=== PATIENT | male | born 1945 | race Caucasian/White ===

== ENCOUNTER 2018-01-07 21:09 | Inpatient (IN) | payer OTHER ==
[~2018-01-07] VITALS: Ht 162.6 cm; Wt 69.9 kg
[~2018-01-07 21:09] MED LIST: ASPIRIN325 PO; AVODART0.5 MG PO; CARISOPRODOL; COUMADIN 5 MG TA5 M1 PO; ENOXAPARIN80 MG/0.8 SQ; LEVAQUIN PO; LISINOPRIL20 MG PO; LOPRESSOR50 PO; PERCOCET 10-321 EACH PO; PERCOCET 5-3251 EACH PO; PROTONIX40 M2 PO; SIMVASTATIN40 MG PO; SOMA PO
[2018-01-07 21:16] VITALS: BP 114/82
[2018-01-07] MEDS ORDERED: MONOPRIL20 MG PO (21:29)
[2018-01-07] MEDS ORDERED: DICLOFENAC SODI75 MG PO (21:30)
[2018-01-07] MEDS ORDERED: FLOMAX0.4 MG PO (21:30)
[2018-01-07 21:37] LABS: ABSOLUTE BASOPHILS 0.1 thou/uL (0.0-0.2); ABSOLUTE EOSINOPHILS 0.1 thou/uL (0.0-0.7); ABSOLUTE LYMPHOCYTES 3.1 thou/uL (0.8-5.3); ABSOLUTE MONOCYTES 0.6 thou/uL (0.0-1.2); ABSOLUTE NEUTROPHILS 6.7 thou/uL (1.6-8.1); BASOPHILS 0.7 %; EOSINOPHILS 1.2 %; HEMATOCRIT 46.8 % (42.0-52.0); HEMOGLOBIN 15.8 gm/dL (14.0-18.0); LYMPHOCYTES 29.2 %; MCH 32.1 pg (26.0-34.0); MCHC 33.8 g/dL (28.0-37.0); MONOCYTES 5.7 %; MPV 7.5 fl. (7.2-11.1); NUCLEATED RBCS 0 /100WBC; PLATELET COUNT* 179 thou/uL (150-400); POLYS 63.2 %; RBC 4.93 mil/uL (4.50-6.00); RDW-CV 13.8 % (10.5-14.5); WBC 10.6 thou/uL (4.0-11.0)
[2018-01-07 21:42] LABS: ANION GAP 6 mmol/L (7-16); BUN 21 mg/dL (7-18); CALCIUM 8.7 mg/dL (8.5-10.1); CHLORIDE 104 mmol/L (98-107); CO2 29 mmol/L (21-32); GLUCOSE 147 mg/dL (70-99); POTASSIUM 3.5 mmol/L (3.5-5.1); SODIUM 139 mmol/L (136-145)
[2018-01-07 21:43] LABS: APTT 24.3 Seconds (25.0-31.3); PROTIME 10.6 Seconds (9.20-11.50)
--- NOTE | 2018-01-07 21:45 | NUR ---
CT HEAD C SPINE COMPLEATED PATEINT RETURNED TO ED
[2018-01-07 21:48] LABS: ALBUMIN 3.7 g/dL (3.4-5.0); ALKALINE PHOSPHATASE 68 U/L (46-116); LIPASE 151 U/L (73-393); SGOT 18 U/L (15-37); SGPT 31 U/L (30-65); TOTAL BILIRUBIN 0.7 mg/dL (<0.1-1.0)
[2018-01-07 22:03] LABS: TROPONIN-I LEVEL <0.06 ng/mL (<0.06)
[2018-01-07 23:00] VITALS: BP 125/64
[2018-01-07 23:30] VITALS: BP 137/68
[2018-01-08 04:00] VITALS: BP 139/79
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
[2018-01-08 08:00] VITALS: BP 116/95
--- NOTE | 2018-01-08 08:00 | NUR ---
AM ASSESSMENT COMPLETE, DEFER TO COMPUTER CHARTING. LEVELER HELPER TRACKING SR. DENIES DIZZINESS, TINGLING OR WEAKNESS AT THIS TIME. PATIENT REPORTING HAVING BACK PAIN - WHICH HE STATES IS CHRONIC, REFUSING PAIN MEDICATION WHEN OFFERED. DRESSING CDI TO LEFT ELBOW. CALL LIGHT WTIHIN REACH. WILL MONITOR.
[2018-01-08 11:43] LABS: URINE BILIRUBIN NEGATIVE (Negative); URINE BLOOD TRACE (Negative); URINE CLARITY CLEAR; URINE COLOR YELLOW; URINE GLUCOSE-RANDOM NEGATIVE (Negative); URINE KETONES NEGATIVE (Negative); URINE LEUKOCYTES-REFLEX TRACE (Negative); URINE NITRITE-REFLEX NEGATIVE (Negative); URINE PROTEIN NEGATIVE (Negative)
[2018-01-08 12:00] VITALS: BP 152/80; BP 154/87; BP 155/83
[2018-01-08 12:09] LABS: SQUAMOUS >10 Many /LPF (0-3)
[2018-01-08 12:10] LABS: BACTERIA-REFLEX None Seen /HPF (None Seen); CASTS None Seen /LPF (None Seen); CRYSTALS None Seen /LPF (None Seen); MUCUS 0-3 Light strn/LPF (None Seen); URINE RBC None Seen /HPF (0-2); URINE WBC-REFLEX 0-5 Rare /HPF (0-5)
[2018-01-08 14:00] VITALS: BP 170/103
--- NOTE | 2018-01-08 14:16 | NUR ---
INITIAL ASSESSMENT: Received referral to evaluate pt for d/c planning needs. Reviewed chart and spoke with nurse and pt's sister. Pt is currently off the unit having pacemaker placed. Pt lives in house with spouse and was independent with ADL's prior to admission to the hospital. 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 Pt uses no DME and has not had home health. Pt is still driving. Pt plans on returning home angel d/c from hospital. Will remain available to assist as needed.
--- NOTE | 2018-01-08 14:47 | NUR ---
PT RETURNED TO ROOM , POST PACEMAKER, APPEARS DROWSY, O X 4, DENIES CHEST PAIN, SOB, PAIN OR DISCOMFORT, l CHEST PACEMAKER SITE APPEARS INTACT, l ARM IMMOBILIZED IN SLING, PT AND FAMILY INSTRUCTED/EDUCATED ON KEEPING L ARM IMMOBILIZED, AND NOT LIFTING L ARM OVER HEAD, PT AND FAMILY VERBALIZED UNDERSTANDING OF TX PLAN, BP 142/85, HR 70, R 1-16 , T 98.7 AXILLARY
[2018-01-08 14:52] VITALS: BP 142/85
[2018-01-08 20:00] VITALS: BP 143/77
[2018-01-09] VITALS: BP 143/94
[2018-01-09 04:00] VITALS: BP 127/78
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
[2018-01-09 05:02] LABS: HEMATOCRIT 49.3 % (42.0-52.0); HEMOGLOBIN 16.5 gm/dL (14.0-18.0); MCHC 33.5 g/dL (28.0-37.0); MCV 95.6 fL (80.0-100.0); MPV 7.8 fl. (7.2-11.1); RBC 5.15 mil/uL (4.50-6.00); RDW-CV 13.8 % (10.5-14.5); WBC 9.8 thou/uL (4.0-11.0)
[2018-01-09 05:07] LABS: CALCIUM 8.8 mg/dL (8.5-10.1); CREATININE 0.8 mg/dL (0.6-1.3); MAGNESIUM 2.1 mg/dL (1.8-2.4); POTASSIUM 4.3 mmol/L (3.5-5.1)
[2018-01-09 08:06] VITALS: BP 158/90
--- NOTE | 2018-01-09 09:12 | NUR ---
ASSUMED CARE OF PT THIS AM AROUND 0715- RANGE CONSERVATIONIST IN PLACE ORDERED, TRACING SR WITH 1ST DEGREE- UPON ASSESSMENT PT NOTED TO BE RESTING IN BED, WATCHING TV- PT A&O X4- CONTINENT OF BOWEL AND BLADDER- SBA WITH TRANSFERS FOR SAFETY- LCTA, RESP EVEN AND UN-LABORED- VSS, O2 SAT 95% ON RA- ABDOMEN SOFT/ROUND/NON-TENDER, BS X4 QUADS- PT REPORTS LAST BM 01/07/18- PASSING GAS OKAY-IV NOTED TO LEFT FA INTACT AND SL- LEFT CHEST INCISSING WITH STERI-STRIPS IN PLACE, COVERED WITH GAUZE AND TRANSPARENT DRESSING C/D/I WITH NO VISIBLE DRAINGE NOTED- LEFT ARM IN SLING INDICATED- DRESSING NOTED TO BE INTACT TO LEFT UE, WITH NO VISIBLE DRAINGE NOTED- GOOD PO INTAKE NOTE WITH BREAKFAST THIS AM, BS MONITORED INDICATED- PT RATES PAIN 4/10 TO BACK, DENIES NEED FOR PAIN MEDICATION AT THIS TIME- HERE TO SEE THIS AM AND OKAY WITH D/C TODAY WITH VASCULAR F/U OP- CALL LIGHT AND PERSONAL BELONGINGS WITH IN REACH- HOURLY ROUNDS IN PLACE R/T SAFETY/NEEDS- ALLL NEEDS MET AT THIS TIME-WCTM
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
[2018-01-09 12:01] VITALS: BP 141/87
[2018-01-09 12:17] VITALS: BP 141/87
[2018-01-09] MEDS ORDERED: KEFLEX500 M2 PO (15:02)
[2018-01-09] MEDS ORDERED: ACETAMINOPHEN-1 EAC1 PO (15:03)
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
--- NOTE | 2018-01-10 10:24 | EKG ---
[place] [address] ELECTROCARDIOGRAM REPORT Name: NOEMI ANG MARRY Room: [address] DIS IN M.R.#: [id number] Admission: 01/07/18 Attend Phys: Sofi Sen MD Discharge: 01/09/18 Date of : 47 Report #: [id number] THIS REPORT FOR: //name// [facility] ED Test Date: 2018-01-07 Test Time: 21:17:57 Pat Name: NOEMI ANG Department: Room: [facility] Gender: M Hand Sewer Shoes: : 1945 Requested By: Jayden Hancock Order Number: [id number] MD: Berry Hayward Measurements Intervals [place] Rate: 90 P: 62 MO: 148 QRS: 61 QRSD: 106 T: 10 QT: 355 QTc: 435 Interpretive Statements Sinus rhythm Ventricular premature complex LAE, consider biatrial enlargement Inferior infarct, old Compared to ECG 02/25/2010 17:24:58 Ventricular premature complex(es) now present ST (T wave) deviation now present Myocardial infarct finding still present Electronically Signed On 01-10-2018 10:23:57 CDT by Berry Hayward [email or web address] <ELECTRONICALLY SIGNED> By: Berry Hayward MD, FAC 01/10/18 1023 16 16 Berry Hayward MD, FAC /EPI
--- NOTE | 2018-01-10 10:46 | EKG ---
[place] [address] ELECTROCARDIOGRAM REPORT Name: NOEMI ANG II Room: [address] DIS IN M.R.#: [id number] Admission: 01/07/18 Attend Phys: Sofi Sen MD Discharge: 01/09/18 Date of : 47 Report #: [id number] THIS REPORT FOR: //name// [facility] Test Date: 2018-01-09 Test Time: 08:30:33 Pat Name: NOEMI ANG Department: Room: [address] Gender: M Corporate Communications Intern: : 1945 Requested By: Sohail Mendes Order Number: [id number] MATOS: Berry Hayward Measurements Intervals [place] Rate: 67 P: [place]: 153 QRS: 53 QRSD: 107 T: 19 QT: 411 QTc: 434 Interpretive Statements Atrial-paced rhythm Probable inferior infarct, old Compared to ECG 02/25/2010 17:24:58 Sinus rhythm no longer present Myocardial infarct finding still present Electronically Signed On 01-10-2018 10:46:15 CDT by Berry Hayward [email or web address] <ELECTRONICALLY SIGNED> By: Berry Hayward MD, [facility] 01/10/18 1046 0830 0830 Berry Hayward MD, [facility] /EPI
--- NOTE | 2018-01-11 14:55 | CARD ---
[address] [address] CARDIAC CATH REPORT Name: NOEMI ANG II Room: [address] IN [facility]#: [id number] Admission: 01/07/18 Attend Phys: Sofi Sen MD Discharge: 01/09/18 Date of : 47 Report #: [id number] THIS REPORT FOR: //name// APPROVED REPORT Study performed: 01/08/2018 13:00:18 Patient Status: In-Patient Room #: 222 Event Personnel: Alida Mathew RN, Rachel Kee, Priscila Winchester, Sohail Mendes Comb Fixer Exam: Insertion of Dual Chamber Permanent Pacemaker Indications: syncope and sinus node arrest The patient is a 72 year-old male with a history of sinus node arrest leading to syncopal episode. Conscious Sedation Start time: 1340 End Time: 1414 Fentanyl 200 mcg Versed 8 mg Implanted Devices: Biotronik Wing Farias, serial #[id number] dual-chamber pacing generator Biotronik Solia S 53, serial #[id number] atrial lead Biotronik Solia S 60, serial #[id number] ventricular lead Procedure The patient underwent informed consent. We discussed the details of the procedure including the risks, which include, but not limited to bleeding, infection, vascular damage, cardiac perforation, and pneumothorax. He understood these risks and was willing to proceed. As such, he was brought to the EP/Cardiac Catheterization laboratory in a fasting and sedated state and prepped and draped in a sterile fashion, received IV antibiotics prior to initiation of the procedure and a venogram was performed showing patency of the left axillary vein. The patient underwent conscious sedation, with no related complications. The patient was brought to the EP/Cardiac Catheterization laboratory and the left chest and shoulder were prepped and draped in a sterile manner. During this case, Fluoroscopy and visipaque 10cc were used for imaging. The left subclavian region was infiltrated with 2% Lidocaine subcutaneous anesthesia. A transverse [place] [address] CARDIAC CATH REPORT Name: SAVNOEMI Han TUTTLE Room: [address]#: [id number] Admission: 01/07/18 Attend Phys: Sofi Sen MD Discharge: 01/09/18 Date of : 47 Report #: [id number] upper chest cavity. The subcutaneous pocket was formed via blunt dissection. Percutaneous venous access was achieved and an introducer sheath was inserted into the left Subclavian vein. Sheaths were positions using the modified Seldinger technique Through the introducer sheaths the atrial and ventricular lead wires were positioned in the right atrial appendage and right ventricular apex respectively. Capturing and sensing thresholds were verified. Electrode Parameters P Wave: 2.0 mV R Wave: 9.0 mV Atrial Threshold: 1.2 V at 0.40 ms Ventricular Threshold: 0.8 V at 0.40 ms Atrial Resistance: 546 ohms Ventricular Resistance: 760 ohms Dual Chamber The atrial and ventricular leads were then secured using 0 silk sutures. The subcutaneous pocket was irrigated with ancef antibiotic solution.The atrial and ventricular leads were attached to the appropriate receptacles on the pulse generator and set screws firmly tightened to insure adequate contact and stability. The lead and pulse generator were placed into the subcutaneous pocket. Sharp and sponge counts were confirmed to be correct. At this time the pocket was closed subcutaneously with a 2.0 Vicryl and the skin was closed with a 4.0 Vicryl. The operative site was dressed in sterile fashion with steri strips and the patient was transferred to the floor in stable condition. Complications The patient tolerated the procedure well and there were no complications associated with the procedure. Findings Specimens Removed: N/A 1. Mode DDD/CLS. 2. Lower rate 60 bpm. 3. Upper tracking rate 120 bpm. Conclusion 1. Syncope. 2. Sinus node arrest. 3. Successful dual-ch[place] [address] CARDIAC CATH REPORT Name: NOEMI ANG II Room: [address] IN M.R.#: [id number] Admission: 01/07/18 Attend Phys: Sofi Sen MD Discharge: 01/09/18 Date of : 47 Report #: [id number] Recommendations 1. Follow-up site check in one week. 2. Follow-up in the office for an office interrogation in one month. <ELECTRONICALLY SIGNED> By: Sohail Mendes MD, FACC 01/11/18 1455 1455 1455Michael Irish Mendes MD, FACC /INF
[2018-02-01] MEDS ORDERED: PROSCAR 5MG TABL5 MG PO (10:00)
[2018-02-01] MEDS ORDERED: DICLOFENAC SODI75 MG PO (10:00)
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
== END 2018-01-09 15:30 | disposition home or self-care (01) | DRG 243 ==
LOC: M.ERS 21:09 → M.2W 22:31 → M.TBA-ER 22:31 → M.2W 23:25
PROVIDERS: Family Medicine; ADMIT Internal Medicine
PROC: 0JH606Z Insertion of Pacemaker, Dual Chamber into Chest Subcutaneous Tissue and Fascia, Open Approach (ICD-10-PCS; principal; 2018-01-08)
PROC: 02H63JZ Insertion of Pacemaker Lead into Right Atrium, Percutaneous Approach (ICD-10-PCS; principal; 2018-01-08)
PROC: 02HK3JZ Insertion of Pacemaker Lead into Right Ventricle, Percutaneous Approach (ICD-10-PCS; principal; 2018-01-08)
DX: I45.5 Other specified heart block (principal); J98.11 Atelectasis; I65.22 Occlusion and stenosis of left carotid artery; E78.00 Pure hypercholesterolemia, unspecified; I25.10 Atherosclerotic heart disease of native coronary artery without angina pectoris; E78.5 Hyperlipidemia, unspecified; I10 Essential (primary) hypertension; N40.0 Benign prostatic hyperplasia without lower urinary tract symptoms; F17.210 Nicotine dependence, cigarettes, uncomplicated; K21.9 Gastro-esophageal reflux disease without esophagitis; R00.1 Bradycardia, unspecified; S50.02XA Contusion of left elbow, initial encounter; R73.9 Hyperglycemia, unspecified; Z95.0 Presence of cardiac pacemaker; Z95.5 Presence of coronary angioplasty implant and graft; Z90.49 Acquired absence of other specified parts of digestive tract; I25.2 Old myocardial infarction; Z88.8 Allergy status to other drugs, medicaments and biological substances; Z82.49 Family history of ischemic heart disease and other diseases of the circulatory system; Z79.82 Long term (current) use of aspirin; Z79.899 Other long term (current) drug therapy; Z83.6 Family history of other diseases of the respiratory system; Z23 Encounter for immunization; V49.9XXA Car occupant (driver) (passenger) injured in unspecified traffic accident, initial encounter; Y93.89 Activity, other specified; Y92.89 Other specified places as the place of occurrence of the external cause; Y99.8 Other external cause status

== ENCOUNTER 2018-02-18 09:44 | Inpatient (IN) | payer OTHER ==
[~2018-02-18] VITALS: Ht 162.6 cm; Wt 75.3 kg
[~2018-02-18 09:44] MED LIST changes: +ACETAMINOPHEN-1 EAC1 PO; +DICLOFENAC SODI75 MG PO; +FLOMAX0.4 MG PO; +KEFLEX500 M2 PO; +MONOPRIL20 MG PO; +PROSCAR 5MG TABL5 MG PO
[2018-02-18 13:30] LABS: ABSOLUTE BASOPHILS 0.1 thou/uL (0.0-0.2); ABSOLUTE EOSINOPHILS 0.2 thou/uL (0.0-0.7); ABSOLUTE LYMPHOCYTES 2.7 thou/uL (0.8-5.3); ABSOLUTE MONOCYTES 0.5 thou/uL (0.0-1.2); ABSOLUTE NEUTROPHILS 5.9 thou/uL (1.6-8.1); BASOPHILS 0.8 %; EOSINOPHILS 2.1 %; HEMATOCRIT 46.8 % (42.0-52.0); HEMOGLOBIN 15.7 gm/dL (14.0-18.0); LYMPHOCYTES 28.9 %; MCH 31.8 pg (26.0-34.0); MCHC 33.6 g/dL (28.0-37.0); MCV 94.7 fL (80.0-100.0); MONOCYTES 5.5 %; MPV 7.6 fl. (7.2-11.1); NUCLEATED RBCS 0 /100WBC; PLATELET COUNT* 141 thou/uL (150-400); POLYS 62.7 %; RBC 4.94 mil/uL (4.50-6.00); RDW-CV 13.5 % (10.5-14.5); WBC 9.4 thou/uL (4.0-11.0)
[2018-02-18 13:39] LABS: CREATININE 0.8 mg/dL (0.6-1.3); POTASSIUM 4.1 mmol/L (3.5-5.1)
[2018-02-18 14:21] VITALS: BP 156/92
--- NOTE | 2018-02-18 21:03 | NUR ---
PT ADMITTED TO ICU AT 1900 FROM PACU. PT POST OP LEFT CAROTID ENDARECTOMY. RIGHT RADIAL ART LINE CONNECTED, CALIBRATED AND ZERO'D. PT REPORTED BACK PAIN AND ASKED TO SIT AT SIDE OF BED. REQUEST DENIED DUE SWELLING THAT OCCURED IN PACU AFTER PT BECAME COMBATIVE. PT PULLED UP AND REPOSITIONED. PT GIVEN PRN MORPHINE. PT REPORTED FEELING NAUSEATED, PRN ZOFRAN GIVEN. PT ALSO GIVED PRN VICODIN. PT'S AND OTHER FAMILY MEMBER HERE TO SEE PT. PT ASKED TO SIT UP AT BEDSIDE. PT'S ASKED FOR PT TO SIT UP AT BEDSIDE. INFORMED PT AND THAT SWELLING HAD OCCURED AT INCISION SITE IN PACU WHEN HE WAS CONFUSED AND COMBATIVE. INFORMED PT AND THAT INCISION SITE MAY SWELL MORE AND POSSIBLE BLEEDING AT CAROTID ARTERY. ADDITIONAL ORDERS RECIEVED FROM DR MACKAY. [T GIVEN PRN OXYCODONE. PT RESTING WHITH OU CLOSED, AROUSES TO VOICE AND RESPONDS APPROPRIATELY. LEVOPHED STARTED TO MAINTAIN MAP > 65. PT RESTING WITH OU CLOSED AT THIS TIME.
[2018-02-18 22:30] VITALS: BP 78/40
[2018-02-18 23:00] VITALS: BP 108/50
[2018-02-18 23:30] VITALS: BP 136/67
[2018-02-19] VITALS (9 sets, daily range): BP systolic 85–107; BP diastolic 31–55
--- NOTE | 2018-02-19 06:31 | NUR ---
PT CONTINUED ON IV LEVOPHED DURING SHIFT TO MAINTAIN MAP > 65. PT RESTING WITH OU CLOSED SINCE RECIEVING OXYCODONE LAST NIGHT. PT VOIDING PER URINAL BUT REPORTS INABILITY TO EMPTY BLADDER. DR MACKAY HERE TO SEE PT AT 0600. PT VOICED DIFFICULTY MAINTAINING BEDREST DUE TO BACK PAIN AND BACK SPASMS. RECIEVED ADDITIONAL ORDERS. PT NOT PROGRESSING TOWARD GOALS.
[2018-02-19] MEDS ORDERED: NORCO 5-325 TA1 EACH PO (10:46)
--- NOTE | 2018-02-19 12:06 | NUR ---
RECIEVED REPORT FROM KALPESH ALFORD. ASSESSMENT CHARTED. AFEBRILE. PT DENIES PAIN. INCISION INTACT. TURNED OFF LEVO AROUND 0800. PT BP WAS WITHIN NORMAL RANGE AND TOLERATED WELL. PT WAS ABLE TO EAT BREAKFAST. IVS AND ART LINE TAKEN OUT. DISCHARGE PAPERWORK GIVEN AND SCRIPT GIVEN. ALL QUESTIONS ANSWERED. PT LEFT AROUND 1145 VIA WHEELCHAIR WITH BELONGINGS.
--- NOTE | 2018-03-08 12:02 | OP ---
[facility] [address] [place] [address] OPERATIVE REPORT Name: NOEMI ANG II Room: [address] IN M.R.#: [id number] Admission: 02/18/18 Attend Phys: Varun Crawford Discharge: 02/19/18 Date of : 47 Report #: [id number] THIS REPORT FOR: //name// CC: Berry Orona DATE OF SERVICE: 02/18/2018 PREOPERATIVE DIAGNOSIS: Asymptomatic left carotid stenosis, greater than 90%. POSTOPERATIVE DIAGNOSIS: Asymptomatic left carotid stenosis, greater than 90%. SURGEON: Joshua Warner DO. CENTRAL OFFICE FRAME WIRER: RACHAEL Campbell. ESTIMATED BLOOD LOSS: 100 mL PROCEDURES: 1. Left carotid endarterectomy and bovine pericardial patch angioplasty. 2. Intraoperative carotid duplex. ANESTHESIA: General endotracheal anesthesia. SPECIMEN: Plaque. COMPLICATIONS: None. CONDITION: Stable. DISPOSITION: ICU. INDICATIONS FOR THE PROCEDURE AND CONSENT: The patient is a 72-year-old male who was identified to have greater than 90% stenosis, left internal carotid artery. Recommendation for left carotid endarterectomy was made. Risks and benefits were discussed, infection, bleeding, need for additional procedures. The patient wished to proceed, was consented and scheduled. PROCEDURE IN DETAIL: After timeout performed, the patient was placed in supine position with sterile prep and drape of the anterior neck and chest wall. Semi-transverse incision was made anterior to the sternocleidomastoid and dissection carried down using Bovie electrocautery. The common carotid artery was identified and dissected sharply and encircled with a Rumel tourniquet. The external and internal carotid arteries were then dissected sharply with Metzenbaum scissors. The internal carotid artery was noted to have significant plaque for at least 4-5 cm beyond the carotid bifurcation[place] [address] OPERATIVE REPORT Name: NOEMI ANG II Room: [address] IN [facility].#: [id number] Admission: 02/18/18 Attend Phys: Varun Crawford Discharge: 02/19/18 Date of : 47 Report #: [id number] soft internal carotid artery high within the wound. This did require ligation of a high facial vein. The hypoglossal nerve was identified and preserved. Once the area was retracted with self-retaining retractor, the internal carotid artery was encircled with a small vessel loop. The external carotid artery was also encircled with small vessel loop. The patient was systemically heparinized with 6000 units of heparin, allowed to circulate for 2 minutes. The clamp was then applied distally and then, the external and common carotid arteries were controlled with their tourniquets. An 11 blade was then used to open a longitudinal arteriotomy and Leal scissors were used to extend it well beyond the plaque and to healthy vessel distally. A #14 shunt was advanced into the internal carotid artery noted to backbleed well and then advanced in the common carotid artery and secured. Plaque elevator was then used to remove the plaque and I everted the external carotid artery well. The endarterectomized portion was then meticulously cleaned with forceps and the distal intima was noted to have tapered nicely. Once I was satisfied with the endarterectomy, a bovine pericardial patch was selected and sutured in place with 6-0 Prolene in circumferential fashion. The patch was hemostatic after 2 repair stitches. The blood flow was restored to the brain after removing the shunt and it was restored through the external carotid artery first. The patch again was noted to be hemostatic after 2 repair stitches. I then performed an intraoperative duplex, which demonstrated the common internal and external carotid arteries to have appropriate waveforms. No high risk flaps or intimal debris was identified on B-mode imaging. Please see saved images. The patient was then systemically reversed with 50 units of protamine. Wound was irrigated copiously and closed in layers using 2-0 Vicryl, 3-0 Vicryl and 4-0 Monocryl suture. Dermabond dressing was applied. The patient tolerated the procedure well. The patient was stable and transferred to recovery in stable condition. <ELECTRONICALLY SIGNED> By: Brayan Patiño DO 03/08/18 1202 1758 1937Joshua Warner DO /nt
--- NOTE | 2018-03-18 14:56 | PATH ---
[address] [address] PATHOLOGY RPT PROCEDURE Name: NOEMI WING II Room: [address] .R.#: [id number] Admission: 02/18/18 Date of : 47 Discharge: 02/19/18 Report #: [id number] Path Case #: [id number] [facility] Accession Number: [id number] . 01 Material submitted: . LEFT CAROTID ARTERY PLAQUE . 01 Clinician provided ICD-10: I65.22 . 01 Clinical history: . Left carotid stenosis . 02 Diagnosis: Left carotid artery plaque: - Calcified atheromatous plaque with associated vessel wall. . (MAP:at;02/22/2018) QTA/02/22/2018 . 02 Electronically signed: . Sohail Mota MD, Pathologist NPI- [id number] . 01 Gross description: . The specimen is received in formalin, labeled "Noemi Wing II, left carotid artery plaque", is a previously opened surgical segment of brooks-white tissue measuring 3.4 x 1.0 x 0.5 cm. The lumen is filled with estrada yellow calcified material that occupies up to 90% of the lumen. Tip Fixer tissue is submitted in A1 after decalcification. (SWS; 02/21/2018) SHS/SHS . 02 Pathologist provided ICD-10: I65.22 . 02 CPT . 354017, [id number] Specimen Comment: Report sent to ,DR MACKAY / DR SOFIA Performed at: 01 [facility] [address], [place], [place] [id number] MD Louie Lentz MD Phone: [phone] Performed at: 02 [place] [address] [facility] [place], [place] [id number] MD Honorio Bower MD Phone: [phone]
== END 2018-02-19 11:41 | disposition home or self-care (01) | DRG 39 ==
LOC: M.PRE 09:44 → M.TBA 12:27 → M.PRE 13:35 → M.ICU 19:05
PROVIDERS: Surgery; ADMIT Internal Medicine
DX: I65.22 Occlusion and stenosis of left carotid artery (principal); K21.9 Gastro-esophageal reflux disease without esophagitis; I10 Essential (primary) hypertension; E78.5 Hyperlipidemia, unspecified; Z90.49 Acquired absence of other specified parts of digestive tract; Z95.5 Presence of coronary angioplasty implant and graft; Z88.8 Allergy status to other drugs, medicaments and biological substances; Z95.0 Presence of cardiac pacemaker; Z79.82 Long term (current) use of aspirin; Z79.899 Other long term (current) drug therapy

== ENCOUNTER → 2018-04-26 | Outpatient (CLI) | payer OTHER ==
[~2018-04-26] MED LIST changes: +NORCO 5-325 TA1 EACH PO
--- NOTE | 2018-04-26 17:03 | 2DMMODE ---
[place] [address] 2 D/M-MODE ECHOCARDIOGRAM Name: NOEMI ANG II Room: [facility]#: [id number] Admission: 04/26/18 Attend Phys: Sohail Mendes, Discharge: Date of : 47 Date of Service: 04/26/18 1703 Report #: [id number] THIS REPORT FOR: //name// APPROVED REPORT Study performed: 04/26/2018 15:08:21 EXAM: Comprehensive 2D, Doppler, and color-flow Echocardiogram Patient Location: Out-Patient Status: routine BSA: 1.82 HR: 82 bpm BP: 120/72 mmHg Other Information Study Quality: Good Indications Atrial Fibrillation 2D Dimensions IVSd: 12.00 (7-11mm) LVOT Diam: 20.50 (18-24mm) LVDd: 44.17 mm PWd: 12.06 (7-11mm) Ascending Ao: 33.41 (22-36mm) LVDs: 26.49 (25-40mm) Aortic Root: 31.97 mm Volumes Left Atrial Volume (Systole) LA ESV Index: 16.30 mL/m2 Aortic Valve AoV Peak Lei.: 1.30 m/s AO Peak Gr.: 6.71 mmHg LVOT Max P.80 mmHg AO Mean Gr.: 3.56 mmHg LVOT Mean P.43 mmHg LVOT Max V: 0.84 m/s AO V2 VTI: 22.85 cm LVOT Mean V: 0.56 m/s FAMILIA (VTI): 2.62 cm2 LVOT V1 VTI: 18.14 cm Mitral Valve E/A Ratio: 0.65 MV Decel. Time: 223.77 ms MV E Max Lei.: 0.63 m/s MV PHT: 64.89 [place] [address] 2 D/M-MODE ECHOCARDIOGRAM Name: NOEMI ANG II Room: [facility]#: [id number] Admission: 04/26/18 Attend Phys: Sohail Mendes, Discharge: Date of : 47 Date of Service: 04/26/18 1703 Report #: [id number] MVA (PHT): 3.39 cm2 TDI E/Lateral E': 7.00 E/Medial E': 10.50 Medial E' Lei.: 0.06 m/s Lateral E' Lei.: 0.09 m/s Pulmonary Valve PV Peak Lei.: 0.86 m/s PV Peak Gr.: 2.95 mmHg Left Ventricle The left ventricle is normal size. There is normal LV segmental wall motion. There is normal left ventricular wall thickness. Left ventricular systolic function is normal. The left ventricular ejection fraction is within the normal range. LVEF is 55-60%. Grade I - abnormal relaxation pattern. Right Ventricle The right ventricle is normal size. The right ventricular systolic function is normal. Pacemaker lead is present in the right ventricle. Atria The left atrium size is normal. Pacemaker lead is present in the right atrium. Aortic Valve Aortic valve leaflets are mildly thickened. No aortic regurgitation is present. There is no aortic valvular stenosis. Mitral Valve The mitral valve is normal in structure. Mild mitral regurgitation. No evidence of mitral valve stenosis. Tricuspid Valve The tricuspid valve is normal in structure. There is no tricuspid valve regurgitation noted. Pulmonic Valve The pulmonary valve is normal in structure. There is no pulmonic valvular regurgitation. Great Vessels The aortic root is normal in size. IVC is normal in size and collapses >50% with inspiration[place] [address] 2 D/M-MODE ECHOCARDIOGRAM Name: NOEMI ANG Han TUTTLE Room: [facility]#: [id number] Admission: 04/26/18 Attend Phys: Sohail Mendes, Discharge: Date of : 47 Date of Service: 04/26/18 1703 Report #: [id number] There is no pericardial effusion. <Conclusion> The left ventricle is normal size. There is normal left ventricular wall thickness. Left ventricular systolic function is normal. The left ventricular ejection fraction is within the normal range. LVEF is 55-60%. Grade I - abnormal relaxation pattern. The right ventricle is normal size. The left atrium size is normal. Aortic valve leaflets are mildly thickened. No aortic regurgitation is present. There is no aortic valvular stenosis. The mitral valve is normal in structure. Mild mitral regurgitation. The tricuspid valve is normal in structure. IVC is normal in size and collapses >50% with inspiration. There is no pericardial effusion. Pacemaker lead is present in the right ventricle. <ELECTRONICALLY SIGNED> By: Berry Hayward MD, FACC 04/26/181702 02 02 Berry Hayward MD, FACC /INF
== END ==
LOC: M.CRD 14:50
DX: I34.0 Nonrheumatic mitral (valve) insufficiency (principal); I35.8 Other nonrheumatic aortic valve disorders; I48.0 Paroxysmal atrial fibrillation

== ENCOUNTER → 2018-08-12 | Day surgery (SDC) | payer OTHER ==
[2018-08-12 10:07] LABS: HEMATOCRIT 49.9 % (42.0-52.0); HEMOGLOBIN 17.2 gm/dL (14.0-18.0); MCH 32.2 pg (26.0-34.0); MCHC 34.5 g/dL (28.0-37.0); MCV 93.3 fL (80.0-100.0); MPV 7.5 fl. (7.2-11.1); RBC 5.35 mil/uL (4.50-6.00); RDW-CV 14.3 % (10.5-14.5); WBC 10.5 thou/uL (4.0-11.0)
[2018-08-12 10:16] LABS: ALBUMIN 3.9 g/dL (3.4-5.0); CALCIUM 9.3 mg/dL (8.5-10.1); CREATININE 1.1 mg/dL (0.6-1.3); POTASSIUM 4.4 mmol/L (3.5-5.1); TOTAL PROTEIN 7.4 g/dL (6.4-8.2)
--- NOTE | 2018-08-12 10:46 | EKG ---
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1945 Requested By: Austen Almaraz Order Number: [id number] Michelle MD: Darnell Weston Measurements Intervals Oak Rate: 71 P: CO: 161 QRS: 76 QRSD: 105 T: 28 QT: 416 QTc: 453 Interpretive Statements Atrial-paced complexes Inferior infarct, old Borderline ST elevation, anterolateral leads Baseline wander in lead(s) V1 Compared to ECG 01/09/2018 08:30:33 Myocardial infarct finding still present Electronically Signed On 08-12-2018 10:46:41 CDT by Darnell Weston [email or web address] <ELECTRONICALLY SIGNED> By: Darnell Weston MD, [facility] 08/12/18 1046 1010 1010 Darnell Weston MD, [facility] /EPI
--- NOTE | 2018-08-15 17:07 | PATH ---
[address] [address] PATHOLOGY RPT PROCEDURE Name: NOEMI WING II Room: [facility].#: [id number] Admission: 08/12/18 Date of : 47 Discharge: Report #: [id number] Path Case #: [id number] [facility] Accession Number: [id number] . 01 Material submitted: . PROXIMAL ASCENDING COLON POLYP . 01 Clinical history: . Personal Hx of polyps . 02 Diagnosis: Proximal ascending colon polyp: - Tubular adenoma, negative for high-grade dysplasia. (DAGOBERTO:liana; 08/15/2018) MBR/08/15/2018 . 02 Electronically signed: . Honorio Bower MD, Pathologist NPI- [id number] . 01 Gross description: . Received in formalin labeled "Noemi Wing II proximal ascending colon polyp," is a single segment of estrada soft tissue measuring 0.6 cm in maximum dimension. The specimen is entirely submitted in cassette A1. (TSD; 08/12/2018) TOB/TOB . 02 Pathologist provided ICD-10: D12.2 . 02 CPT . 574991 Specimen Comment: A courtesy copy of this report has been sent to Specimen Comment: [phone], . Specimen Comment: Report sent to / DR SOFIA Performed at: [address], [place] [id number] MD Louie Lentz MD Phone: [phone] Performed at: 02 [facility] [address], [place], [place] [id number] MD Honorio Bower MD Phone: [phone]
== END | disposition home or self-care (01) ==
LOC: M.SUR 09:24
PROVIDERS: Internal Medicine Gastroenterology; Student in an Organized Health Care Education/Training Program
DX: Z12.11 Encounter for screening for malignant neoplasm of colon (principal); Z86.010 Personal history of colon polyps; D12.2 Benign neoplasm of ascending colon; K57.30 Diverticulosis of large intestine without perforation or abscess without bleeding; K64.8 Other hemorrhoids; K64.4 Residual hemorrhoidal skin tags; I10 Essential (primary) hypertension; I25.10 Atherosclerotic heart disease of native coronary artery without angina pectoris; E78.5 Hyperlipidemia, unspecified; R00.0 Tachycardia, unspecified; I73.9 Peripheral vascular disease, unspecified; F17.210 Nicotine dependence, cigarettes, uncomplicated; Z95.0 Presence of cardiac pacemaker; Z79.1 Long term (current) use of non-steroidal anti-inflammatories (NSAID); Z95.5 Presence of coronary angioplasty implant and graft; Z98.890 Other specified postprocedural states; Z79.82 Long term (current) use of aspirin; Z88.8 Allergy status to other drugs, medicaments and biological substances; Z79.899 Other long term (current) drug therapy

== ENCOUNTER → 2021-01-08 | Outpatient (CLI) | payer OTHER ==
--- NOTE | 2021-01-08 17:09 | CARDNUC ---
[place] [address] CARDIAC NUCLEAR IMAGING REPORT Name: NOEMI ANG MARRY Room: [facility]#: [id number] Admission: 01/08/21 Attend Phys: Sohail Mendes, Discharge: Date of : 47 Date of Service: 01/08/21 1709 Report #: [id number] THIS REPORT FOR: cc: Berry Webb John E. DO Liston, Michael J. MD [facility] ~ APPROVED REPORT Imaging Protocol: Stress Tc-99m/Rest Tc-99m 1 day Study performed: 01/08/2021 07:45:00 Indication: Pre-Operative CV evaluation Patient Location: Out-Patient Stress Nurse: Kenisha Quintero RN Ht: 5 ft 5 in Wt: 155 lbs BSA: 1.77 m2 BMI: 25.79 Medical History Medical History: CAD s/p stent, Current Smoker, HTN, Hyperlipidemia, Pacemaker in situ Medications: asa-325, flecainide, fosinopril, metoprolol, simvastatin Allergies: novacaine Cardiac Risk Factors: Age, Current Smoker, FHX of CAD, HTN, Hyperlipidemia Previous Cardiac Procedures: PCI, PPM Exercise History: Sedentary Meds Held (24 hrs): metoprolol Resting Data Rest SPECT myocardial perfusion imaging was performed in supine position 30 minutes following the intravenous injection of 9.58 mCi of Tc-99m Sestamibi. Time of rest injection: 08:15 The images were gated to evaluate regional wall motion and calculate left ventricular ejection fraction. Administration Route: IV Administration Site: Right Arm Pharmacologic Stress Pharmacologic stress test was performed by injecting Regadenoson 0.4 mg IV push over 10-15 seconds immediately followed by the intravenous injection of 33.4 mCi of Tc-99[place] [address] CARDIAC NUCLEAR IMAGING REPORT Name: NOEMI ANG II Room: [facility] [place]#: [id number] Admission: 01/08/21 Attend Phys: Sohail Mendes, Discharge: Date of : 47 Date of Service: 01/08/21 1709 Report #: [id number] Time of stress injection: 09:30 Administration Route: IV Administration Site: Right Arm Heart Rate at time of stress injection: 101 bpm. Gated Stress SPECT was performed 40 minutes after stress injection. The images were gated to evaluate regional wall motion and calculate left ventricular ejection fraction. Stress Test Details Stress Test: Pharmacologic stress testing performed using 0.4 mg of regadenoson per 5 mL given IV over 10 seconds. Reason for pharmacologic stress test: PPM. HR Max Heart Rate (APMHR): 146 bpm Resting HR: 73 bpm Target HR (85% APMHR): 124 bpm Max HR Achieved: 101 bpm % of APMHR: 69 Recovery HR: 94 bpm BP Resting BP: 146/78 mmHg Max BP: 151/55 mmHg Recovery BP: 120/72 mmHg ECG Resting ECG: Sinus Rhythm Stress ECG: Sinus Tachycardia ST Change: None Arrhythmia: None Recovery ECG: Sinus Rhythm Recovery ST Change: None Recovery Arrhythmia: None Clinical Reason for Termination: Completed protocol The patient tolerated Lexiscan infusion without significant cardiac symptoms. Stress ECG Conclusion The baseline twelve-lead EKG shows sinus rhythm without significant ST segment or T wave abnormality. EKGs obtained during and post Lexiscan infusion show sinus rhythm and sinus tachycardia with no significant ST segment or T wave changes when compared to baseline. There were no stress-induced [place] [address] CARDIAC NUCLEAR IMAGING REPORT Name: NOEMI ANG II Room: [facility]#: [id number] Admission: 01/08/21 Attend Phys: Sohail Mendes, Discharge: Date of : 47 Date of Service: 01/08/21 1709 Report #: [id number] Study: Good Artifact: Mild Diaphragmatic artifact Study Data At rest, the left ventricular ejection fraction was 64%.. Post stress, the left ventricular ejection was 65%.. TID = 0.93. Perfusion There is mild photopenia noted in the basal inferior wall consistent with diaphragmatic attenuation artifact. There is a small in size moderate intensity fixed defect in the mid to apical inferior wall that appears to be consistent with prior infarct. No reversible defects are identified to suggest ischemia. Wall Motion Global LV systolic function is preserved. There is an area of akinesis in the inferior wall. Nuclear Conclusion ECG Findings: negative for ischemia Clinical Findings: negative for ischemia Nuclear Findings: negative for ischemia Exercise Capacity: not assessed Left Ventricular Function: Preserved Perfusion images suggest prior inferior wall infarct. Global LV systolic function is preserved. This is not a high risk study. <Conclusion> The baseline twelve-lead EKG shows sinus rhythm without significant ST segment or T wave abnormality. EKGs obtained during and post Lexiscan infusion show sinus rhythm and sinus tachycardia with no significant ST segment or T wave changes when compared to baseline. There were no stress-induced arrhythmias. <ELECTRONICALLY SIGNED> By: Sohail Mendes MD, FACC 01/08/21 170 08 08 Sohail Mendes MD, FACC /INF
== END ==
LOC: M.NUC 07:37
PROVIDERS: ATTEND Internal Medicine Cardiovascular Disease
DX: Z01.818 Encounter for other preprocedural examination (principal); I25.10 Atherosclerotic heart disease of native coronary artery without angina pectoris; I48.0 Paroxysmal atrial fibrillation; Z95.0 Presence of cardiac pacemaker